=== PATIENT | male | born 1965 | race Caucasian/White ===

== ENCOUNTER 2016-10-06 08:32 | Emergency (ER) | payer OTHER ==
[2016-10-06] MEDS ORDERED: NS 0.9% 1000 ML* 1,000 ML IV ONE (08:50)
[2016-10-06 09:33] LABS: Hematocrit 46 % (42-52); Hemoglobin 15.6 g/dl (14.0-18.0); Mean Corpuscular HGB Conc 34 g/dl (31-36); Mean Corpuscular Hemoglobin 31 pg (27-31); Mean Corpuscular Volume 90 fL (80-94); Mean Platelet Volume 9 um3 (7.4-10.4); Red Blood Count 5.07 10^6/ul (4.0-5.4); Red Cell Distribution Width 14 % (10.5-15); White Blood Count 8.9 10^3/ul (3.5-10.8)
[2016-10-06 09:48] LABS: Albumin 3.8 g/dL (3.2-5.2); BUN/Creatinine Ratio 18.5 (8-20); C Reactive Protein 7.18 mg/L (< 5.00); Calcium 8.9 mg/dL (8.6-10.3); EGFR African American 128.2 (>60); EGFR Non-African American 99.7 (>60); Globulin 2.9 g/dL (2-4); Potassium 3.7 mmol/L (3.5-5.0); Total Bilirubin 0.5 mg/dL (0.2-1.0); Total Protein 6.7 g/dL (6.4-8.9)
[2016-10-06 10:18] LABS: Urine Bilirubin Negative (Negative); Urine Glucose Negative (Negative); Urine Nitrite Negative (Negative)
[2016-10-06] MEDS ORDERED: Iohexol 300* (CONTRAST) 10 ML SDV IV ONE (11:09)
[2016-10-06] MEDS ORDERED: HYDROmorphone INJ* 1 MG/ML CARPUJECT SYRINGE ONE (12:15)
[2016-10-06] MEDS ORDERED: HYDROmorphone INJ* 1 MG/ML CARPUJECT SYRINGE IV SLOW PU ONE (12:19)
--- NOTE | 2016-10-06 12:33 | RAD ---
INDICATION: Left lower quadrant abdominal pain. History of colonoscopy on September 14, 2016. COMPARISON: There are no prior studies available for comparison. TECHNIQUE: A CT scan of the abdomen and pelvis was performed with intravenous and oral contrast following intravenous injection of 150 ml of Omnipaque 300 nonionic contrast. Contiguous axial sections were obtained from the lung bases through the symphysis pubis. Images were reconstructed in the coronal and sagittal planes. FINDINGS: The lung bases are clear. No pleural effusion is present. The liver is moderately enlarged and decreased in attenuation consistent with fatty infiltration. No significant focal abnormality is seen. No calcified gallstones are noted. The spleen is normal in size. The pancreas appears to be within normal limits. The kidneys and adrenal glands are normal in size. No hydronephrosis is seen. There appear to be small bilateral renal cysts measuring up to 1.5 cm in size. The aorta is normal in caliber and demonstrates homogeneous contrast opacification. No significant enlarged retroperitoneal lymph nodes are seen. The stomach, small and large bowel appear nondistended. The appendix is within normal limits. There is mild to moderate descending and sigmoid diverticulosis. There is no evidence for diverticulitis or colitis. There is a small periumbilical hernia containing fat. No free intraperitoneal air or fluid is seen. No significant focal osseous abnormality is seen. IMPRESSION: 1. NO EVIDENCE FOR ACUTE FINDING OR CAUSE FOR THE PATIENT'S ABDOMINAL PAIN IS SEEN. 2. HEPATOMEGALY AND HEPATIC STEATOSIS.
--- NOTE | 2016-10-15 09:48 | ED ---
Dawit Izaguirre Adam, scribed for Stanley Gray MD on 10/06/16 at 0853 . Abdominal Pain/Male - HPI Summary HPI Summary: Pt is a 51 year old male presenting with LLQ abdominal pain. The pt had a colonoscopy on 09/14 with 2 polyps removed and he has had the LLQ pain intermittently since then. The pain is described as a dull ache. It tends to be alleviated by having a BM. He came to the ED because the pain has grown more severe in the past day. Pt denies CP, SOB, blood in stool. PMHx of HTN. Pt quit smoking 2 years ago. FMHx of heart disease (father at 44). - History of Current Complaint Chief Complaint: EDAbdPain Stated Complaint: ABD PAIN/TONKSDWFQEH-12-11-16 Time Seen by Provider: 10/06/16 08:49 Hx Obtained From: Patient Onset/Duration: Gradual Onset, Lasting Weeks, Still Present Timing: Intermittent Severity Initially: Mild Severity Currently: Moderate Pain Intensity: 10 Pain Scale Used: 0-10 Numeric Location: Discrete At: LLQ Radiates: No Aggravating Factor(s): Nothing Alleviating Factor(s): Nothing - Allergies/Home Medications Allergies/Adverse Reactions: Allergies Allergy/AdvReac Type Severity Reaction Status Date / Time Ampicillin Allergy Rash Verified 10/06/16 08:39 Penicillins [PCN] Allergy Rash Verified 10/06/16 08:39 Home Medications: Home Medications Aspirin Low Dose CHEW TAB* [Aspirin Low Dose TAB*] 81 mg PO BEDTIME 10/06/16 [ History Confirmed 10/06/16] Hydrochlorothiazide TAB* [Hydrodiuril TAB*] 25 mg PO DAILY 10/06/16 [History Confirmed 10/06/16] Metoprolol Tartrate TAB* [Lopressor TAB*] 50 mg PO BID 10/06/16 [History Confirmed 10/06/16] PMH/Surg Hx/FS Hx/Imm Hx Cardiovascular History: Reports: Hx Hypertension Infectious Disease History: No Infectious Disease History: Denies: Traveled Outside the [place] in Last 30 Days - Family History Known Family History: Positive: Cardiac Disease - Social History Occupation: Unemployed Lives: With Family - Hx Tobacco Use: Yes - Quit 10/01/2014 Smoking Status (MU): Former Smoker Review of Systems Constitutional: Negative Negative: Fever Positive: Abdominal Pain All Other Systems Reviewed And Are Negative: Yes Physical Exam - Summary Physical Exam Summary: GENERAL: Awake, alert, oriented, no acute distress, very pleasant HEENT: Head is normocephalic, atraumatic, anicteric sclera, pink conjunctiva, mucous membranes moist, no erythema, no discharge, no lesions, neck is supple, trachea is midline, no JVD CARDIAC: Regular rate and rhythm, S1, S2, no rub, no murmur, no gallop, 2+ radial and pedal pulses bilaterally RESPIRATORY: Clear to auscultation bilaterally with no rales, rhonchi, or wheezes, non-tender ABDOMEN: Moderate tenderness in the LLQ. No guarding, no rebound. Bowel sounds positive, no bruit, soft, no tenderness over McBurneys point, negative Marino s sign, negative Psoas sign, 2+ femoral pulses, no CVA tenderness EXTREMITIES: No edema, warm, dry, moving all extremities in a grossly normal manner NEUROLOGICAL: Mood is appropriate, moving all extremities in a grossly normal manner Triage Information Reviewed: Yes Vital Signs On Initial Exam: Initial Vitals Temp Pulse Resp BP Pulse Ox 97.0 F 54 16 154/86 98 10/06/16 08:35 10/06/16 08:35 10/06/16 08:35 10/06/16 08:35 10/06/16 08:35 Vital Signs Reviewed: Yes Diagnostics - Vital Signs Vital Signs Temp Pulse Resp BP Pulse Ox 10/06/16 08:35 97.0 F 54 16 154/86 98 - Laboratory Result Diagrams: 10/06/16 09:15 10/06/16 09:15 Lab Statement: Any lab studies that have been ordered have been reviewed, and results considered in the medical decision making process. - CT A/P CT Interpretation Completed By: Radiologist - IMPRESSION: 1. NO EVIDENCE FOR ACUTE FINDING OR CAUSE FOR THE PATIENT'S ABDOMINAL PAIN IS SEEN. 2. HEPATOMEGALY AND HEPATIC STEATOSIS. Abdominal Pain Fem Course/Dx - Diagnoses Provider Diagnoses: Abdominal pain Discharge - Discharge Plan Condition: Stable Disposition: HOME Patient Education Materials: Abdominal Pain (ED) Referrals: Eran Rodriguez MD [Medical Doctor] - Additional Instructions: Follow up with Dr. Rodriguez in 2 days. The documentation as recorded by the Dawit lau Adam accurately reflects the service I personally performed and the decisions made by me, Stanley Gray MD.
== END 2016-10-06 13:27 | disposition home or self-care (01) ==
LOC: ED 08:32
DX: R10.32 Left lower quadrant pain (principal)
CPT/HCPCS: 36415; 74177; 80053; 81003; 83605; 83690; 85025; 86140; 96374; 96376; 99284; J1170; Q9967

== ENCOUNTER → 2018-06-10 07:55 | Day surgery (SDC) | payer OTHER ==
[~2018-06-10 07:55] MED LIST: Acetaminophen TAB* 325 MG PO PRN; Diazepam TAB(*) 5 MG ONE; Heparin 2 UNITS/ML IVPREMIX* 1,000 ML IV ONE; Heparin 2 UNITS/ML IVPREMIX* 3,000 ML IV ONE; Heparin(*) 1000 UNIT/ML 10 ML VIAL CATH LAB IV ONE; Iohexol 350 (CONTRAST) 200 ML MDV IV ONE; Lidocaine 1% INJ* 10 MG/ML 30 ML SDV ONE; Midazolam* 1 MG/ML 10 ML VIAL (10 MG) ONE; NS 0.9% 1000 ML* 1,000 ML IV SCH; VERAPAMIL 2.5 MG/ML 2 ML VIAL ** 5 mg/2 ml ONE; diPHENhydraMINE PO* 25 MG ONE; fentaNYL* 50 MCG/ML 2 ML VIAL (100 MCG VIAL) ONE; nitroGLYCERIN DRIP* 25,000 MCG/250 ML BTL ONE
[2018-06-10 12:14] VITALS: BP 150/70
--- NOTE | 2018-06-11 22:35 | CATH ---
CARDIAC CATHETERIZATION: DATE OF PROCEDURE: 06/10/18 - [facility] CATH PROCEDURE: Cardiac catheterization including right heart catheterization, left heart catheterization, left ventriculogram coronary angiography. INDICATION: Severe dyspnea, abnormal stress test. The patient is a 52-year-old gentleman, with known obesity and severe shortness of breath who recently underwent cardiac evaluation. He underwent an exercise nuclear stress test at which time he exercised for only 3 minutes and had profound dyspnea. Early on his exercise tolerance he had no EKG changes and no arrhythmias. His nuclear images showed an evidence of an apical infarction. The patient had an echocardiogram which showed normal LV size and systolic function, but unable to estimate PA systolic pressures. Because of the continued symptoms and questions of pulmonary hypertension, cardiac catheterization was recommended. DESCRIPTION OF PROCEDURE: The patient was brought to the cardiac catheterization lab in a fasting state. Informed consent had been obtained prior to the procedure. All labs were reviewed. The patient's had previously placed IV in his right antecubital vein. This was switched off for a 5-Beninese sheath introducer thorough which a [place] catheter was advanced to the pulmonary artery. Multiple hemodynamic and oxygen saturation readings were taken. Cardiac output was determined by Beena and by thermodilution. The radial artery was undermined modified Seldinger technique and a guidewire was placed over the guidewire, a 6-Beninese hydrophilic sheath was placed into the radial artery. The patient underwent coronary angiography and left ventriculogram using a 6-Beninese pigtail catheter, a 6-Beninese JL4 catheter and a 6-Beninese AR1 catheter. At the end of the procedure all sheaths and catheters were removed. The patient tolerated the procedure well with no complications. A total of 125 cc of Omnipaque dye was used and a total of 13 minutes of fluoro time was used. FINDINGS: HEMODYNAMICS: Right atrial pressure with a mean of 9, right ventricular pressure of 32/10 with an end-diastolic pressure of 12. Pulmonary capillary wedge pressure of 21. Pulmonary artery pressure 35/17 with a mean of 25. Central aortic blood pressure 126/78 with a mean of 100. Left ventricular pressure 130/2 with an end diastolic pressure of 17. Right atrial saturation is 66%, pulmonary artery saturation 71%, central aortic saturation 97%. Cardiac output by Beena is 6.6 liters per minute. Cardiac output by thermodilution 9.4 liters per minute. No evidence of shunting. CORONARY ARTERIES: 1. Left main artery: The left main artery was short. It bifurcated into the LAD and circumflex. There was no evidence of stenosis. 2. Left anterior descending artery: The LAD was normal in size. It gave off 2 diagonal vessels. There was no evidence of stenosis. 3. Left circumflex artery: The left circumflex artery was normal in size. It gave off 1 obtuse marginal branch. There was no evidence of stenosis. 4. Right coronary artery: The RCA was a large dominant vessel given off the PDA. There was no evidence of stenosis. LEFT VENTRICULOGRAM: During the left ventriculogram the pigtail catheter migrated into the ascending aorta plus a full ventriculogram was not obtained. IMPRESSION: 1. Normal right heart catheterization with normal pulmonary artery pressures and normal cardiac output. 2. No evidence of coronary artery disease. 3. Successful radial artery catheterization. RECOMMENDATION: The patient will continue on medical therapy. The patient may benefit from evaluation for sleep apnea. [id number]/CPS #: [id number] LUPIS
== END | disposition home or self-care (01) ==
LOC: CHICATH 07:55
PROVIDERS: ATTEND Specialist
DX: R94.39 Abnormal result of other cardiovascular function study (principal); R06.02 Shortness of breath; I51.7 Cardiomegaly; E78.5 Hyperlipidemia, unspecified; I11.9 Hypertensive heart disease without heart failure; E11.9 Type 2 diabetes mellitus without complications; Z88.0 Allergy status to penicillin; Z87.891 Personal history of nicotine dependence; R94.31 Abnormal electrocardiogram [ECG] [EKG]; R06.00 Dyspnea, unspecified
CPT/HCPCS: 82803; 93460; 99156; 99157; A9270-GY; C1887; J1644; J2250; J3010

== ENCOUNTER 2019-05-09 07:22 | Emergency (ER) | payer OTHER ==
[2019-05-09] MEDS ORDERED: Ketorolac INJ* 30 MG/ML 1 ML VIAL IV PUSH ONE (07:54)
[2019-05-09] MEDS ORDERED: Diazepam TAB(*) 5 MG PO ONE ×2 (07:54→07:55)
[2019-05-09 08:13] LABS: ABS Basophils 0.1 10^3/ul (0-0.2); ABS Lymphocytes 1.3 10^3/ul (1.0-4.8); ABS Monocytes 0.5 10^3/ul (0-0.8); ABS Neutrophils 7.4 10^3/ul (1.5-7.7); Eosinophil % 0.3 %; Hematocrit 45 % (42-52); Hemoglobin 15.8 g/dL (14.0-18.0); Lymphocyte % 14.2 %; Mean Corpuscular HGB Conc 35 g/dL (31-36); Mean Corpuscular Hemoglobin 31 pg (27-31); Mean Corpuscular Volume 87 fL (80-94); Mean Platelet Volume 8.8 fL (7.4-10.4); Nucleated Red Blood Cells % 0.1; Platelet Count 261 10^3/uL (150-450); Red Blood Count 5.15 10^6 /uL (4.18-5.48); Red Cell Distribution Width 14 % (10-15); White Blood Count 9.2 10^3/uL (3.5-10.8)
[2019-05-09] MEDS ORDERED: Iohexol 300* (CONTRAST) 10 ML SDV IV ONE (08:18)
[2019-05-09 08:30] LABS: Albumin 4.1 g/dL (3.2-5.2); Albumin/Globulin Ratio 1.4 (1-3); BUN/Creatinine Ratio 19.7 (8-20); C Reactive Protein 9.62 mg/L (<8.01); Calcium 9.2 mg/dL (8.6-10.3); EGFR African American 139.4 (>60); EGFR Non-African American 115.2 (>60); Globulin 2.9 g/dL (2-4); Potassium 3.1 mmol/L (3.5-5.0); Total Bilirubin 0.6 mg/dL (0.2-1.0)
[2019-05-09 08:42] LABS: Urine Appearance Cloudy; Urine Bilirubin Negative (Negative); Urine Blood Negative (Negative); Urine Color Yellow; Urine Glucose Negative (Negative); Urine Ketones 1+ (Negative); Urine Nitrite Negative (Negative); Urine Protein Negative (Negative); Urine Specific Gravity 1.011 (1.010-1.030); Urine Urobilinogen Negative (Negative)
[2019-05-09] MEDS ORDERED: oxyCODONE/Acetamin 5/325 MG* TAB PO ONE (09:31)
[2019-05-09] MEDS ORDERED: Potassium Chlor TAB* 20 MEQ TAB.ER PO ONE (09:53)
--- NOTE | 2019-05-09 10:43 | ED ---
Back Pain - HPI Summary HPI Summary: Patient is a 53-year-old male who presents emergency department for low back pain times one week. Swimming in the pool because ago when he believes he injured his low back. Patient states pain has been increasing and is located to his left back and radiates into his abdomen. Patient denies fever, chills, cough, shortness of breath, chest pain, abdominal pain, vomiting, diarrhea. He does no urinary urgency. Symptoms are [id number] in severity. Movement makes symptoms worse. Nothing makes symptoms better. - History of Current Complaint Chief Complaint: EDBackInjuryPain Stated Complaint: BACK PAIN PER EMS Time Seen by Provider: 05/09/19 07:35 Hx Obtained From: Patient Pain Intensity: 10 - Allergies/Home Medications Allergies/Adverse Reactions: Allergies Allergy/AdvReac Type Severity Reaction Status Date / Time ampicillin Allergy Intermediate Rash Verified 05/09/19 11:17 Penicillins Allergy Intermediate Rash Verified 05/09/19 11:17 Home Medications: Home Medications Umeclidin/Vilant 62.5 MDI(NF) [ANORO 62.5/25 Ellipta DEVICE (NF)] 1 puff INH DAILY 05/09/19 [History Confirmed 05/09/19] PMH/Surg Hx/FS Hx/Imm Hx Previously Healthy: Yes Endocrine/Hematology History: Denies: Hx Diabetes Cardiovascular History: Reports: Hx Hypercholesterolemia, Hx Hypertension History: Denies: Hx Renal Disease Infectious Disease History: No Infectious Disease History: Denies: Traveled Outside the [place] in Last 30 Days - Family History Known Family History: Positive: Cardiac Disease, Non-Contributory - Social History Occupation: Unemployed Lives: With Family Alcohol Use: Daily Alcohol Amount: 1-3 beers daily Substance Use Type: Reports: Marijuana Hx Tobacco Use: Yes - Quit 10/01/2014 Smoking Status (MU): Former Smoker Review of Systems Constitutional: Negative Negative: Fever, Chills Cardiovascular: Negative Negative: Palpitations, Chest Pain Respiratory: Negative Negative: Shortness Of Breath, Cough Positive: Abdominal Pain, Nausea. Negative: Vomiting, Diarrhea Positive: urgency. Negative: dysuria, hematuria Positive: Other - back pain, left low Skin: Negative Negative: Rash Neurological: Negative Negative: Weakness, Paresthesia, Numbness All Other Systems Reviewed And Are Negative: Yes Physical Exam Triage Information Reviewed: Yes Vital Signs On Initial Exam: Initial Vitals Temp Pulse Resp BP Pulse Ox 97.8 F 57 18 136/75 99 05/09/19 07:24 05/09/19 07:24 05/09/19 07:24 05/09/19 07:24 05/09/19 07:24 Vital Signs Reviewed: Yes Appearance: Positive: Pain Distress - Pt. sitting up in bed in NAD. Appears uncomfortable and has a lot of pain with movement. Skin: Positive: Warm, Dry Head/Face: Positive: Normal Head/Face Inspection Eyes: Positive: Normal, EOMI Neck: Positive: Supple Respiratory/Lung Sounds: Positive: Clear to Auscultation, Breath Sounds Present Cardiovascular: Positive: Normal, RRR Abdomen Description: Positive: Nontender, Soft Musculoskeletal: Positive: Normal, Strength/ROM Intact, Other - 5 out of 5 strength in bilateral lower extremities. Mild left CVA tenderness and left side joint pain. Neurological: Positive: Normal, CN Intact II-III Psychiatric: Positive: Affect/Mood Appropriate Diagnostics - Vital Signs Vital Signs Temp Pulse Resp BP Pulse Ox 05/09/19 09:49 18 05/09/19 08:04 16 05/09/19 08:00 128/77 05/09/19 07:30 56 136/75 99 05/09/19 07:29 58 98 05/09/19 07:24 97.8 F 57 18 136/75 99 - Laboratory Lab Results: Lab Results 05/09/19 05/09/19 05/09/19 Range/Units 08:03 08:03 08:15 WBC 9.2 (3.5-10.8) 10^3/uL RBC 5.15 (4.18-5.48) 10^6 /uL Hgb 15.8 (14.0-18.0) g/dL Hct 45 (42-52) % MCV 87 (80-94) fL MCH 31 (27-31) pg MCHC 35 (31-36) g/dL RDW 14 (10-15) % Plt Count 261 (150-450) 10^3/uL MPV 8.8 (7.4-10.4) fL Neut % (Auto) 80.0 % Lymph % (Auto) 14.2 % [place] % (Auto) 4.9 % Eos % (Auto) 0.3 % Baso % (Auto) 0.6 % Absolute Neuts (auto) 7.4 (1.5-7.7) 10^3/ul Absolute Lymphs (auto) 1.3 (1.0-4.8) 10^3/ul Absolute Monos (auto) 0.5 (0-0.8) 10^3/ul Absolute Eos (auto) 0.0 (0-0.6) 10^3/ul Absolute Basos (auto) 0.1 (0-0.2) 10^3/ul Absolute Nucleated RBC 0.0 10^3/ul Nucleated RBC % 0.1 Sodium 136 (135-145) mmol/L Potassium 3.1 L (3.5-5.0) mmol/L Chloride 103 (101-111) mmol/L Carbon Dioxide 22 (22-32) mmol/L Anion Gap 11 (2-11) mmol/L BUN 14 (6-24) mg/dL Creatinine 0.71 (0.67-1.17) mg/dL Est GFR ( Amer) 139.4 (>60) Est GFR (Non-Af Amer) 115.2 (>60) BUN/Creatinine Ratio 19.7 (8-20) Glucose 159 H (70-100) mg/dL Calcium 9.2 (8.6-10.3) mg/dL Total Bilirubin 0.60 (0.2-1.0) mg/dL AST 15 (13-39) U/L ALT 22 (7-52) U/L Alkaline Phosphatase 51 (34-104) U/L C-Reactive Protein 9.62 H (<8.01) mg/L Total Protein 7.0 (6.4-8.9) g/dL Albumin 4.1 (3.2-5.2) g/dL Globulin 2.9 (2-4) g/dL Albumin/Globulin Ratio 1.4 (1-3) Urine Color Yellow Urine Appearance Cloudy Urine pH 7.0 (5-9) Ur Specific [place] 1.011 (1.010-1.030) Urine Protein Negative (Negative) Urine Ketones 1+ A (Negative) Urine Blood Negative (Negative) Urine Nitrate Negative (Negative) Urine Bilirubin Negative (Negative) Urine Urobilinogen Negative (Negative) Ur Leukocyte Esterase Negative (Negative) Urine Glucose Negative (Negative) Result Diagrams: 05/09/19 08:03 05/09/19 08:03 Lab Statement: Any lab studies that have been ordered have been reviewed, and results considered in the medical decision making process. Back Pain Course/Dx - Course Course Of Treatment: Patient left flank pain race and abdomen. He is afebrile stable vital signs. Patient does have urinary hesitancy. We'll rule out urolithiasis. Labs unremarkable other than trace ketones in urine and mildly elevated glucose. CT per radiology: IMPRESSION: #. No acute abdominal pelvic pathologic process evident. #. Hepatomegaly and hepatosteatosis. #. Normal appendix documented. Mild colonic diverticulosis without findings of acute. diverticulitis. #. Negative for nephrolithiasis or hydronephrosis. Patient initially given Toradol and Valium for his pain with little relief. He was given a dose Percocet with improvement of pain. Patient able to ambulate with pain. He has no neurological deficits or evidence of cauda equina syndrome. We 'll discharge with a few days of pain medication and prednisone. GIN FEEDER reviewed and no red flags noted. Patient will follow-up with PCP on Sunday and return to the ER symptoms change or worsen. - Diagnoses Differential Diagnosis/HQI/PQRI: Positive: Arthritis, Fracture, Herniated Disc, Renal Colic, Strain, Sprain Provider Diagnoses: Lumbar strain Discharge - Sign-Out/Discharge Documenting (check all that apply): Patient Departure Patient Received Moderate/Deep Sedation with Procedure: No - Discharge Plan Condition: Improved Disposition: HOME Prescriptions: HYDROcodone/ACETAMIN 5-325 MG* [[place] 5-325 TAB*] 1 tab PO Q6H PRN #12 tab MDD 4 PRN Reason: Pain - Moderate predniSONE [Prednisone 20 MG TAB] 40 mg PO ONCE #10 tablet Patient Education Materials: Low Back Strain (ED) Referrals: Celestine MORE,Clif[place] New [Primary Care Provider] - Additional Instructions: Follow up with your PCP within 2-3 days Take medication as directed Apply warm compresses Gentle stretching Return to ER if symptoms change or worsen - Billing Disposition and Condition Condition: IMPROVED Disposition: Home
[2019-05-09 11:37] VITALS: BP 140/80
== END 2019-05-09 11:36 | disposition home or self-care (01) ==
LOC: ED 07:22
DX: S39.012A Strain of muscle, fascia and tendon of lower back, initial encounter (principal); X58.XXXA Exposure to other specified factors, initial encounter; Y92.9 Unspecified place or not applicable; Z88.0 Allergy status to penicillin; Z79.899 Other long term (current) drug therapy; Z87.891 Personal history of nicotine dependence; R16.0 Hepatomegaly, not elsewhere classified; K76.89 Other specified diseases of liver; K57.30 Diverticulosis of large intestine without perforation or abscess without bleeding
CPT/HCPCS: 36415; 74177; 80053; 81003; 85025; 86140; 96374; 99283; A9270-GY; J1885; Q9967

== ENCOUNTER 2019-12-14 23:17 | Observation (INO) | payer OTHER ==
[2019-12-15 00:36] LABS: ABS Lymphocytes 1.1 10^3/ul (1.0-4.8); ABS Monocytes 0.6 10^3/ul (0-0.8); ABS Neutrophils 10.2 10^3/ul (1.5-7.7); Eosinophil % 0.2 %; Hematocrit 44 % (42-52); Hemoglobin 15.2 g/dL (14.0-18.0); Lymphocyte % 9.1 %; Mean Corpuscular HGB Conc 35 g/dL (31-36); Mean Corpuscular Hemoglobin 31 pg (27-31); Mean Corpuscular Volume 89 fL (80-94); Mean Platelet Volume 9.3 fL (7.4-10.4); Platelet Count 290 10^3/uL (150-450); Red Blood Count 4.94 10^6 /uL (4.18-5.48); Red Cell Distribution Width 14 % (10-15); White Blood Count 11.9 10^3/uL (3.5-10.8)
[2019-12-15 00:55] LABS: ALT 12 U/L (7-52); AST 11 U/L (13-39); Albumin 4.1 g/dL (3.2-5.2); Albumin/Globulin Ratio 1.3 (1-3); Alkaline Phosphatase 59 U/L (34-104); Anion Gap 8 mmol/L (2-11); BUN/Creatinine Ratio 10.6 (8-20); Blood Urea Nitrogen 9 mg/dL (6-24); CO2 Carbon Dioxide 26 mmol/L (22-32); Calcium 9.8 mg/dL (8.6-10.3); Chloride 103 mmol/L (101-111); EGFR African American 112.8 (>60); EGFR Non-African American 93.2 (>60); Globulin 3.1 g/dL (2-4); Glucose 129 mg/dL (70-100); Potassium 3.9 mmol/L (3.5-5.0); Sodium 137 mmol/L (135-145); Total Protein 7.2 g/dL (6.4-8.9)
[2019-12-15] MEDS ORDERED: Ondansetron INJ* 2 MG/ML VIAL IV ONE ×2 (02:06→04:18)
[2019-12-15] MEDS ORDERED: Ketorolac INJ* 30 MG/ML 1 ML VIAL IV PUSH ONE (02:06)
[2019-12-15 02:37] LABS: Urine Appearance Clear; Urine Bilirubin Negative (Negative); Urine Blood Negative (Negative); Urine Color Yellow; Urine Glucose Negative (Negative); Urine Ketones 2+ (Negative); Urine Nitrite Negative (Negative); Urine Protein Negative (Negative); Urine Specific Gravity 1.025 (1.010-1.030); Urine Urobilinogen Negative (Negative)
[2019-12-15] MEDS ORDERED: Iohexol 300* (CONTRAST) 10 ML SDV IV ONE (02:52)
--- NOTE | 2019-12-15 03:10 | ED ---
Abdominal Pain/Male - HPI Summary HPI Summary: Patient is a 54 y/o M presenting to [facility] with chief complaint of abdominal pain. He states that this current pain has been present for the 2-3 days. He notes a similar episode of pain that occurred two weeks ago, but states that this resolved spontaneously. Pain is characterized as a squeezing sensation. He notes nausea, some diarrhea, and decreased appetite. Fever is denied. He reports PMHx of diabetes, HTN and COPD. Patient states that he was diagnosed with type 2 diabetes a year ago when he weighed 411 lbs. He reports that he refused to take diabetes medications and went on a high keto diet. Patient claims to have lost 100lbs. He also notes that he has stopped taking his HTN and COPD medications. Patient denies past abdominal surgeries, he still has his appendix and gallbladder. He is a former smoker of 5-6 years, denies alcohol consumption, but reports daily marijuana usage. He claims FMHx of [place] in father at age 43. Sister is reported to have Parkinson's disease. Home medications and allergies are reviewed. - History of Current Complaint Chief Complaint: EDAbdPain Stated Complaint: ABD PAIN PER PT Time Seen by Provider: 12/15/19 01:36 Hx Obtained From: Patient Onset/Duration: Lasting Days Timing: Lasting Days Severity Currently: Severe Pain Intensity: 9 Pain Scale Used: 0-10 Numeric Character: Other: - squeezing Associated Signs And Symptoms: Positive: Decreased Appetite, Nausea, Diarrhea. Negative: Fever - Allergies/Home Medications Allergies/Adverse Reactions: Allergies Allergy/AdvReac Type Severity Reaction Status Date / Time ampicillin Allergy Intermediate Rash Verified 12/14/19 23:23 Penicillins Allergy Intermediate Rash Verified 12/14/19 23:23 Home Medications: Home Medications NK [No Home Medications Reported] 12/15/19 [History Confirmed 12/15/19] PMH/Surg Hx/FS Hx/Imm Hx Endocrine/Hematology History: Reports: Hx Diabetes Cardiovascular History: Reports: Hx Hypercholesterolemia, Hx Hypertension Respiratory History: Reports: Hx Chronic Obstructive Pulmonary Disease (COPD) History: Denies: Hx Renal Disease Infectious Disease History: No Infectious Disease History: Denies: Traveled Outside the [place] in Last 30 Days - Family History Known Family History: Positive: Cardiac Disease - Social History Alcohol Use: None Substance Use Type: Reports: Marijuana Hx Tobacco Use: Yes - Quit 10/01/2014 Smoking Status (MU): Former Smoker - Additional Comments History Additional Comments: PMHx of HTN, COPD, diabetes Review of Systems - ROS Summary Review of Systems Summary: Home Medications Medication Instructions Recorded Confirmed Type NK [No Home Medications Reported] 12/15/19 12/15/19 History Negative: Fever Positive: Abdominal Pain, Diarrhea, Nausea, Other - Decreased appetite All Other Systems Reviewed And Are Negative: Yes Physical Exam - Summary Physical Exam Summary: General: Well-developed, Morbidly obese male. Moderate discomfort HEENT: Normocephalic, Atraumatic. Eyes: Conjuctiva normal, PERRL. Oropharynx: Clear, mucous membranes moist, (-) exudates. Neck: Soft, FROM, (-) lymphadenopathy, (-) thyromegaly, (-) JVD. Cardiovascular: Normal sinus rhythm, (-) murmur. Lungs: Clear to auscultation bilaterally (-) wheezes, (-) rales, (-) rhonchi. Abdomen: Soft, moderate tenderness to RLQ and RUQ with rebound and guarding to the RLQ; non-distended, (-) organomegaly, normal bowel sounds. Back: (-) CVA tenderness Extremities: No edema. Skin: Warm, dry, (-) rash. Neuro: Alert and oriented x3, moves all extremities equally. No ataxia. No gait disturbance. No sensory deficit. Normal strength, normal sensation. Psychiatric: Mood normal, affect normal. Triage Information Reviewed: Yes Vital Signs On Initial Exam: Initial Vitals Temp Pulse Resp BP Pulse Ox 98.0 F 61 18 144/98 98 12/14/19 23:23 12/14/19 23:23 12/14/19 23:23 12/14/19 23:23 12/14/19 23:23 Vital Signs Reviewed: Yes Procedures - Sedation Patient Received Moderate/Deep Sedation with Procedure: No Diagnostics - Vital Signs Vital Signs Temp Pulse Resp BP Pulse Ox 12/15/19 03:08 57 93 12/15/19 03:06 58 143/89 93 12/15/19 01:19 50 153/93 100 12/15/19 01:00 58 100 12/15/19 00:46 48 165/95 97 12/14/19 23:23 98.0 F 61 18 144/98 98 - Laboratory Lab Results: Lab Results 03/12/15/19 12/15/19 Range/Units 00:28 00:28 00:28 WBC 11.9 H (3.5-10.8) 10^3/uL RBC 4.94 (4.18-5.48) 10^6 /uL Hgb 15.2 (14.0-18.0) g/dL Hct 44 (42-52) % MCV 89 (80-94) fL MCH 31 (27-31) pg MCHC 35 (31-36) g/dL RDW 14 (10-15) % Plt Count 290 (150-450) 10^3/uL MPV 9.3 (7.4-10.4) fL Neut % (Auto) 85.4 % Lymph % (Auto) 9.1 % [place] % (Auto) 5.0 % Eos % (Auto) 0.2 % Baso % (Auto) 0.3 % Absolute Neuts (auto) 10.2 H (1.5-7.7) 10^3/ul Absolute Lymphs (auto) 1.1 (1.0-4.8) 10^3/ul Absolute Monos (auto) 0.6 (0-0.8) 10^3/ul Absolute Eos (auto) 0.0 (0-0.6) 10^3/ul Absolute Basos (auto) 0.0 (0-0.2) 10^3/ul Absolute Nucleated RBC 0.0 10^3/ul Nucleated RBC % 0.0 Sodium 137 (135-145) mmol/L Potassium 3.9 (3.5-5.0) mmol/L Chloride 103 (101-111) mmol/L Carbon Dioxide 26 (22-32) mmol/L Anion Gap 8 (2-11) mmol/L BUN 9 (6-24) mg/dL Creatinine 0.85 (0.67-1.17) mg/dL Est GFR ( Amer) 112.8 (>60) Est GFR (Non-Af Amer) 93.2 (>60) BUN/Creatinine Ratio 10.6 (8-20) Glucose 129 H (70-100) mg/dL Lactic Acid 0.8 (0.5-2.0) mmol/L Calcium 9.8 (8.6-10.3) mg/dL Total Bilirubin 0.60 (0.2-1.0) mg/dL AST 11 L (13-39) U/L ALT 12 (7-52) U/L Alkaline Phosphatase 59 (34-104) U/L C-Reactive Protein 72.50 H (<8.01) mg/L Total Protein 7.2 (6.4-8.9) g/dL Albumin 4.1 (3.2-5.2) g/dL Globulin 3.1 (2-4) g/dL Albumin/Globulin Ratio 1.3 (1-3) Lipase < 10 L (11.0-82.0) U/L Urine Color Urine Appearance Urine pH (5-9) Ur Specific [place] (1.010-1.030) Urine Protein (Negative) Urine Ketones (Negative) Urine Blood (Negative) Urine Nitrate (Negative) Urine Bilirubin (Negative) Urine Urobilinogen (Negative) Ur Leukocyte Esterase (Negative) Urine Glucose (Negative) 12/15/19 Range/Units 02:25 WBC (3.5-10.8) 10^3/uL RBC (4.18-5.48) 10^6 /uL Hgb (14.0-18.0) g/dL Hct (42-52) % MCV (80-94) fL MCH (27-31) pg MCHC (31-36) g/dL RDW (10-15) % Plt Count (150-450) 10^3/uL MPV (7.4-10.4) fL Neut % (Auto) % Lymph % (Auto) % [place] % (Auto) % Eos % (Auto) % Baso % (Auto) % Absolute Neuts (auto) (1.5-7.7) 10^3/ul Absolute Lymphs (auto) (1.0-4.8) 10^3/ul Absolute Monos (auto) (0-0.8) 10^3/ul Absolute Eos (auto) (0-0.6) 10^3/ul Absolute Basos (auto) (0-0.2) 10^3/ul Absolute Nucleated RBC 10^3/ul Nucleated RBC % Sodium (135-145) mmol/L Potassium (3.5-5.0) mmol/L Chloride (101-111) mmol/L Carbon Dioxide (22-32) mmol/L Anion Gap (2-11) mmol/L BUN (6-24) mg/dL Creatinine (0.67-1.17) mg/dL Est GFR ( Amer) (>60) Est GFR (Non-Af Amer) (>60) BUN/Creatinine Ratio (8-20) Glucose (70-100) mg/dL Lactic Acid (0.5-2.0) mmol/L Calcium (8.6-10.3) mg/dL Total Bilirubin (0.2-1.0) mg/dL AST (13-39) U/L ALT (7-52) U/L Alkaline Phosphatase (34-104) U/L C-Reactive Protein (<8.01) mg/L Total Protein (6.4-8.9) g/dL Albumin (3.2-5.2) g/dL Globulin (2-4) g/dL Albumin/Globulin Ratio (1-3) Lipase (11.0-82.0) U/L Urine Color Yellow Urine Appearance Clear Urine pH 5.0 (5-9) Ur Specific [place] 1.025 (1.010-1.030) Urine Protein Negative (Negative) Urine Ketones 2+ A (Negative) Urine Blood Negative (Negative) Urine Nitrate Negative (Negative) Urine Bilirubin Negative (Negative) Urine Urobilinogen Negative (Negative) Ur Leukocyte Esterase Negative (Negative) Urine Glucose Negative (Negative) Result Diagrams: 12/15/19 00:28 12/15/19 00:28 Lab Statement: Any lab studies that have been ordered have been reviewed, and results considered in the medical decision making process. - CT CT ABD/PEL CT Interpretation Completed By: Radiologist Summary of CT Findings: IMPRESSION: Acute appendicitis. No evidence of perforation. No associated abscess. No bowel. obstruction. THIS REPORT WAS REVIEWED BY ED PHYSICIAN. - EKG 9687 Cardiac Rate: Bradycardia - rate of 55 BPM EKG Rhythm: Sinus Bradycardia Summary of EKG Findings: EKG showed sinus bradycardia with rate of 55 BPM, no STEMI. ED physician reviewed and interpreted this EKG. Abdominal Pain Male Course/Dx - Course Course Of Treatment: 54-year-old male presents with abdominal pain. He states her last 2-3 days he has had some right-sided abdominal pain which has worsened. He describes the pain as sharp and severe. Constant. Never had anything like this before. No fevers or chills. No vomiting or diarrhea. Does have nausea. Nothing seems to make it better or worse. No previous surgeries on her abdomen. On physical exam he appears in moderate discomfort. He has rebound guarding and tenderness in the right lower quadrant. Workup demonstrates an elevated white count. On CT he has acute appendicitis. No perforation or abscess noted. Patient given IV fluids. Toradol and Zofran. Patient is referred to surgery for admission. He is pen allergic so clindamycin is started. patient is NPO. - Diagnoses Provider Diagnoses: Acute appendicitis - Provider Notifications Discussed Care Of Patient With: Jemima Rossi Time Discussed With Above Provider: 04:27 Instructed by Provider To: Other - Patient's case was discussed with Dr. Rossi, surgery; patient to receive clindamyacin, placed on NPO, patient accepted to surgical services. Discharge ED - Sign-Out/Discharge Documenting (check all that apply): Patient Departure - admit - Discharge Plan Condition: Stable Disposition: ADMITTED TO [facility] Referrals: Celestine MORE,Clifton New [Primary Care Provider] - - Billing Disposition and Condition Condition: STABLE Disposition: Admitted to [facility] - Attestation Statements Document Initiated by Jorgeibe: Yes Documenting Scribe: NORBERTO MCPHERSON Provider For Whom Jorgeibe is Documenting (Include Credential): CESAR SHARMA MD Scribe Attestation: INORBERTO, scribed for CESAR SHARMA MD on 12/15/19 at 0608. Scribe Documentation Reviewed: Yes Provider Attestation: The documentation as recorded by the NORBERTO lau accurately reflects the service I personally performed and the decisions made by me, CESAR SHARMA MD Status of Scribe Document: Viewed
[2019-12-15] MEDS ORDERED: Clindamycin 300 MG IVPREMIX* 300 MG/50 ML SDV IVPB ONE (04:31)
[2019-12-15] MEDS ORDERED: HYDROmorphone INJ* 0.5 MG/0.5 ML SYRINGE IV SLOW PU PRN (04:33)
[2019-12-15] MEDS ORDERED: GENTAMICIN ADULT IVPB ONE (05:00)
[2019-12-15] MEDS ORDERED: NS 0.9% IVPB ONE (05:00)
[2019-12-15] MEDS ORDERED: Lactated Ringers 1000 ML Bag* 1,000 ML IV SCH ×2 (05:00→09:00)
--- NOTE | 2019-12-15 08:10 | HP ---
H&P (Free Text) History and Physical: History and Physical General Surgery Diagnosis:Acute Appendicitis Chief Complaint: Abdominal Pain HPI:54 yo male reports a 2-3 day hx of abdominal pain, originally epigastric now focused in the right side of the abdomen. associated symptoms, nausea, no vomit, one episode of diarrhea, anorexia , no fever but sweats. He is obese, reports dropping 100lbs by adhering to a Keto diet, has stopped taking all medications for his HTN,DM, ^ Chol, COPD PMH:Obesity, DM, HTN, COPD,GERD PSH: Tonsils/Adnoids SOCIAL HX: TOB former ETOH none x 1 year DRUGS marijuana FAMILY HISTORY: brother of laryngeal Ca, Father of [place] , no family hx of bleeding or anesthesia problems ALLERGIES: Amp PCN MEDICATIONS: none ROS: Other than as per HPI a 14 point Review of Systems was negative PHYSICAL EXAM: VS: Temp Pulse Resp BP Pulse Ox 98.4 F 73 18 155/76 96 12/15/19 06:41 12/15/19 06:41 12/15/19 06:41 12/15/19 06:41 12/15/19 06:41 HEENT: NCAT, EOMI, neck supple,Trachea in midline CHEST: CTA B/L CVS: RRR ABD: Obese, + Tender Right Abdomen, Felisa umbilical, no referred pain, hypoactive BS's Diastasis Recti M/S: Moves all extremities through a full range of motion SKIN: no lesions NEURO:refuse collector grossly normal PSYCH: AxO x 3 LABS: Selected Entries 12/15/19 12/15/19 12/15/19 03:25 06:24 06:41 Temperature 98.2 F 98.7 F 98.4 F Laboratory Tests 12/15/19 12/15/19 12/15/19 00:28 00:28 00:28 WBC 11.9 H Hgb 15.2 Hct 44 Plt Count 290 Lactic Acid 0.8 C-Reactive Protein 72.50 H Urine Ketones 12/15/19 02:25 WBC Hgb Hct Plt Count Lactic Acid C-Reactive Protein Urine Ketones 2+ A RESULTS: [facility] Patient Name:WENCESLAO LUNA MR: [id number] : 1965 Lymph nodes: Unremarkable. No enlarged lymph nodes. Bladder: Unremarkable as visualized. Reproductive: Unremarkable as visualized. Bones/joints: Unremarkable. No acute fracture. Multilevel degenerative lumbar disc disease and facet disease. Soft tissues: Unremarkable. IMPRESSION: Acute appendicitis. No evidence of perforation. No associated abscess. No bowel obstruction. Dictated and Authenticated by: Ziyad Rooney MD 12/15/2019 3:09 AM Eastern Time ([place] and [place]) <Electronically signed by Ziyad Rooney MD in [place]> 12/15/19 0309 Dictated By: Ziyad Rooney MD Dictated Date/Time: 12/15/19 025 ASSESSMENT:54 yo male with signs symptoms and CT findings C/W Acute Appendicitis PLAN:NPO, IV ABX, OR today for Laparoscopic Appendectomy. Above D/W Dr Rossi
[2019-12-15] MEDS ORDERED: Bupivacaine 0.25% SDV* 30 ML ONE (08:25)
[2019-12-15] MEDS ORDERED: Buffered Lidocaine 1% SYRIN* 1 ML/SYRINGE INTRADERM ONE (08:34)
[2019-12-15] MEDS ORDERED: HYDROmorphone INJ1* 1 MG/ML SYRINGE IV PRN (08:35)
[2019-12-15] MEDS ORDERED: Naloxone* 0.4 MG/ML 1 ML VIAL IV PRN (08:35)
[2019-12-15] MEDS ORDERED: Clindamycin 600 MG/D5W BAG(*) 600 MG/50 ML BAG IV ONE (08:46)
--- NOTE | 2019-12-15 08:56 | PN ---
Progress Note - Progress Note Date of Service: 12/15/19 Note: Surgery Progress Note Please see full H&P by IBRAHIMA Harley. Briefly, patient is a 54 yo M with morbid obesity, COPD who presented to the ED last night with RLQ and RUQ pain x 2 days. He was found to have a mildly elevated WBC and a CT scan consistent with acute appendicitis. I have reviewed his labs and imaging. On physical exam he is tender in the RLQ. I have reviewed surgery with him, which will be a laparoscopic, possible open appendectomy. I discussed that the risks include but are not limited to bleeding, infection, injury to nearby structures such as the cecum, small bowel, bladder, stomach and so forth. There is a chance that he may present later with an intraabdominal abscess. He understands that there is a chance that the appendix is perforated and gangrenous, possibly requiring an admission for IV antibiotics. He understands the alternatives and benefits and wishes to proceed with surgery. All questions were answered.
[2019-12-15] MEDS ORDERED: Haloperidol INJ IV/IM* 5 MG/ML AMP ONE (11:08)
--- NOTE | 2019-12-15 11:12 | BRIEFOPN ---
Brief Operative/Procedure Note - Operation Details Pre-Op Diagnosis: acute appendicitis Post-Op Diagnosis: perforated appendicitis Procedures: laparoscopic appendectomy Surgeon(s)/Proceduralists: Jemima Rossi Anesthesia: Dr. Kandis LINARES Estimated Blood Loss: minimal Findings: perforated appendix, inflamed near base Specimen(s)/Culture(s) Description: appendix Complications: none
[2019-12-15] MEDS ORDERED: HYDROmorphone INJ1* 1 MG/ML SYRINGE ONE (11:23)
[2019-12-15] MEDS: Clindamycin 600 MG/D5W BAG(*) 600 MG/50 ML BAG IV SCH ×2 (12:19→16:42)
--- NOTE | 2019-12-15 12:40 | OP ---
DATE OF OPERATION: 12/15/19 - ROOM #349 DATE OF : [birth year] SERVICE: General Surgery. SURGEON: Jemima Rossi MD SITE DAMAGE PREVENTION TECHNICIAN: None. ANESTHESIOLOGIST: Dr. Marquis. ANESTHESIA: General endotracheal anesthesia. PRE-OP DIAGNOSIS: Acute appendicitis. POST-OP DIAGNOSIS: Perforated appendicitis. OPERATIVE PROCEDURE: Laparoscopic appendectomy. ESTIMATED BLOOD LOSS: Minimal, less than 10 cc. SPECIMENS: Appendix. COMPLICATIONS: None. INDICATIONS FOR SURGERY: Mr. Villanueva is a very pleasant 54-year-old gentleman with a history of COPD and morbid obesity. He presented to the emergency room with 2 to 3 days of right upper quadrant and right lower quadrant abdominal pain and severe nausea. His white count was noted to be elevated and he had a CT scan consistent with acute appendicitis. He therefore gave informed consent for a laparoscopic appendectomy. He understood that the risks include, but were not limited to bleeding, infection, injury to nearby structures. He understood the alternatives and benefits and he wished to proceed. DESCRIPTION OF PROCEDURE: The patient was brought back to the operating room and placed on the operating table in the supine position. Sequential compression devices were placed on bilateral lower extremities for DVT prophylaxis. Antibiotics with clindamycin was administered. General endotracheal anesthesia was induced and a Broussard catheter was placed. The patient's abdomen was then prepped and draped in a normal sterile fashion after tucking the left arm. A time- out was performed verifying the patient's name, date of , and the procedure to be performed. Next, 0.25% Marcaine was infiltrated into the left upper quadrant at Gutiérrez's point. A small incision was made and then the Veress needle was advanced into the abdominal wall. A saline drop test was performed that confirmed that the Veress needle was intraabdominal, and after this was done, insufflation was then obtained to 15 mmHg. Next, 0.25% Marcaine was then infiltrated into the infraumbilical fold. A skin incision was made, and then under direct visualization using a 5 mm Optiview trocar, the abdomen was then entered. After this, the abdominal cavity was examined. There was no injury that had been made upon entry with the Veress needle or the 5mm trocar. Therefore, the Veress needle was removed. Next under direct visualization, the remaining two 5 mm trocars were placed, one in the left lower quadrant and one in the lower mid abdomen well above the bladder. The 5 mm trocar at the infraumbilical site was exchanged for a 12 mm trocar. Next, the patient was placed in Trendelenburg with the right side up. The small bowel and the right lower quadrant were swept cephalad, which exposed a very inflamed mesoappendix and a dilated, inflamed phlegmon that contained the tip of an appendix. With great care, the appendix was from very severely inflamed rind of surrounding fatty tissue. There was a lot of difficulty with freeing up the appendix from the inflammatory rind. While doing this, a perforation in the appendix was exposed near the base of the appendix. The base of the appendix also had a sort of blackened rind to it that was very concerning. This was consistent with the finding on the CT scan that showed a large dilated appendix, with surrounding fluid and inflammation of the cecum. Eventually, the base was exposed after dividing the mesoappendix. However, the perforation was very close to the base of the appendix. A 60 mm wilhelm stapler was used to staple across the base of the appendix, but there was a slight tear in the appendix while doing this. The appendix was then placed into an EndoCatch bag and then removed from the abdomen as a specimen. Attention was turned back towards the staple line. Using a Lashanda clamp, the staple line was elevated slightly. There was a small amount of base of the appendix that was left remaining. Therefore an additional 60 mm EndoGIA was used to staple further proximal on the base of the appendix for a second time. After this, the small amount of appendix was then removed from the abdomen and examination of the new staple line showed that it was hemostatic and intact. Several clips were used to reinforce this. After this, the right upper quadrant was aspirated and irrigated with normal saline because there was a small amount of purulent fluid present. The pelvis was examined. A small amount of purulent fluid was also aspirated. After this, a 10-PEARL drain was placed into the right lower quadrant through the left lower quadrant incision. Hemostasis was obtained and then desufflation was obtained and all the trocars were removed under direct visualization. Next, the fascia of the infraumbilical port site was closed using an interrupted 0 Vicryl suture. All the skin was closed using interrupted 4- 0 Monocryl sutures. Sterile dressing was then placed. The patient's anesthesia was reversed, and he was taken to the PACU in stable condition. At the end of the case, prior to the patient waking up, his Broussard catheter was removed. At the end of the case, all counts were correct, and I was present during the entirety of the case. [id number]/[facility] #: [id number] MTDD
[2019-12-15] MEDS: Lactated Ringers 1000 ML Bag* 1,000 ML IVPB SCH ×4 (12:57→22:34)
[2019-12-15] MEDS ORDERED: Acetaminophen TAB* 325 MG PO PRN (13:06)
[2019-12-15] MEDS: oxyCODONE/Acetamin 5/325 MG* TAB PO PRN ×2 (16:07→20:49)
[2019-12-15] MEDS: Ondansetron INJ* 2 MG/ML VIAL IV PRN ×2 (16:36→22:34)
[2019-12-15] MEDS ORDERED: PROCHLORPERAZINE INJ 5 MG/ML 2 ML VIAL IV PRN (18:46)
[2019-12-15] MEDS: Zolpidem TAB* 5 MG PO PRN (22:34)
[2019-12-16] MEDS: Clindamycin 600 MG/D5W BAG(*) 600 MG/50 ML BAG IV SCH ×3 (01:01→16:53)
[2019-12-16] MEDS ORDERED: NS 0.9% 100 ML* 100 ML ONE (05:29)
[2019-12-16] MEDS: Ondansetron INJ* 2 MG/ML VIAL IV PRN ×4 (05:34→22:43)
[2019-12-16] MEDS: oxyCODONE/Acetamin 5/325 MG* TAB PO PRN ×4 (05:37→19:27)
[2019-12-16 05:38] LABS: ABS Lymphocytes 1.1 10^3/ul (1.0-4.8); ABS Monocytes 1.2 10^3/ul (0-0.8); ABS Neutrophils 13.8 10^3/ul (1.5-7.7); Hematocrit 42 % (42-52); Hemoglobin 14.3 g/dL (14.0-18.0); Lymphocyte % 7.1 %; Mean Corpuscular HGB Conc 34 g/dL (31-36); Mean Corpuscular Hemoglobin 31 pg (27-31); Mean Corpuscular Volume 90 fL (80-94); Mean Platelet Volume 9.3 fL (7.4-10.4); Platelet Count 248 10^3/uL (150-450); Red Blood Count 4.68 10^6 /uL (4.18-5.48); Red Cell Distribution Width 14 % (10-15); White Blood Count 16.2 10^3/uL (3.5-10.8)
[2019-12-16 05:55] LABS: BUN/Creatinine Ratio 16.7 (8-20); Calcium 8.8 mg/dL (8.6-10.3); EGFR African American 168.6 (>60); EGFR Non-African American 139.4 (>60); Potassium 3.8 mmol/L (3.5-5.0)
[2019-12-16] MEDS ORDERED: NS 0.9% IVPB ONE (06:30)
[2019-12-16] MEDS ORDERED: GENTAMICIN ADULT IVPB ONE (06:30)
--- NOTE | 2019-12-16 08:10 | PN ---
Progress Note - Progress Note Date of Service: 12/16/19 Note: Surgery Progress Note S: Patient feels well this morning. Yesterday he had nausea and was able to drink liquids. He has been ambulating to the restroom. His pain is overall improved since before surgery. O: Vital Signs - 24 hr 12/15/19 12/15/19 12/15/19 08:08 11:05 11:10 Temperature 97.3 F Pulse Rate 88 75 Respiratory 18 18 18 Rate Blood Pressure 144/89 135/80 (mmHg) O2 Sat by Pulse 96 95 Oximetry 12/15/19 12/15/19 12/15/19 11:15 11:20 11:23 Temperature Pulse Rate 73 74 Respiratory 16 16 16 Rate Blood Pressure 125/78 121/56 (mmHg) O2 Sat by Pulse 94 90 Oximetry 12/15/19 12/15/19 12/15/19 11:45 12:04 12:30 Temperature 97.9 F 97.1 F Pulse Rate 68 74 78 Respiratory 16 16 14 Rate Blood Pressure 135/80 137/77 124/86 (mmHg) O2 Sat by Pulse 93 94 95 Oximetry 12/15/19 12/15/19 12/15/19 13:16 13:28 14:43 Temperature 97.5 F 97.4 F Pulse Rate 75 67 Respiratory 16 16 20 Rate Blood Pressure 140/71 134/75 (mmHg) O2 Sat by Pulse 98 98 Oximetry 12/15/19 12/15/19 12/15/19 16:07 16:43 18:38 Temperature 97.6 F 97.9 F Pulse Rate 65 68 Respiratory 16 20 20 Rate Blood Pressure 139/81 140/85 (mmHg) O2 Sat by Pulse 97 98 Oximetry 12/15/19 12/15/19 12/15/19 20:49 21:11 22:34 Temperature 97.8 F Pulse Rate 64 Respiratory 18 18 18 Rate Blood Pressure 134/68 (mmHg) O2 Sat by Pulse 98 Oximetry 12/15/19 12/16/19 12/16/19 23:24 00:59 04:18 Temperature 97.7 F 97.6 F Pulse Rate 61 68 Respiratory 18 16 17 Rate Blood Pressure 119/73 136/72 (mmHg) O2 Sat by Pulse 97 97 Oximetry 12/16/19 12/16/19 05:37 07:00 Temperature 98.1 F Pulse Rate 52 Respiratory 16 20 Rate Blood Pressure 134/72 (mmHg) O2 Sat by Pulse 95 Oximetry Laboratory Results - last 24 hr 12/15/19 12/16/19 12/16/19 11:19 05:31 05:31 WBC 16.2 H RBC 4.68 Hgb 14.3 Hct 42 MCV 90 MCH 31 MCHC 34 RDW 14 Plt Count 248 MPV 9.3 Neut % (Auto) 85.2 Lymph % (Auto) 7.1 [place] % (Auto) 7.6 Eos % (Auto) 0.0 Baso % (Auto) 0.1 Absolute Neuts (auto) 13.8 H Absolute Lymphs (auto) 1.1 Absolute Monos (auto) 1.2 H Absolute Eos (auto) 0.0 Absolute Basos (auto) 0.0 Absolute Nucleated RBC 0.0 Nucleated RBC % 0.0 Sodium 136 Potassium 3.8 Chloride 103 Carbon Dioxide 25 Anion Gap 8 BUN 10 Creatinine 0.60 L Est GFR ( Amer) 168.6 Est GFR (Non-Af Amer) 139.4 BUN/Creatinine Ratio 16.7 Glucose 138 H POC Glucose (mg/dL) 144 H Calcium 8.8 Intake & Output 12/15/19 12/16/19 12/16/19 22:59 06:59 14:59 Intake Total 1498 Output Total 500 410 Balance 998 -410 Intake: IVPB 58 ABX - CLINDAMYCIN 58 Oral 1440 Output: PEARL #1 50 10 Urine 450 400 Other: # Bowel Movements 0 Physical exam: Abdomen- soft, minimally tender in RLQ, dressings c/d/i and PEARL with serosanguinous fluid A/P: 54 M with perforated (intraop) appendicitis, doing well. - Soft, keto diet (he can bring his own food to eat) - IV abx. WBC slightly elevated today, per expected after surgery. Patient remains afebrile. - OOB ambulate - Plan for DC this afternoon or tomorrow, depending on how well patient eats/ pain is controlled today. I advised patient on return precautions. He will need drain teaching and PO abx (clindamycin) for home. He will return to the office next week for PEARL drain removal. He can remove the outer dressings tomorrow.
[2019-12-16] MEDS: Lactated Ringers 1000 ML Bag* 1,000 ML IVPB SCH ×4 (08:23→16:53)
[2019-12-16] MEDS: Zolpidem TAB* 5 MG PO PRN (22:43)
[2019-12-17] MEDS: Clindamycin 600 MG/D5W BAG(*) 600 MG/50 ML BAG IV SCH ×2 (01:33→09:23)
[2019-12-17] MEDS: Lactated Ringers 1000 ML Bag* 1,000 ML IVPB SCH ×2 (03:45)
--- NOTE | 2019-12-17 08:08 | PN ---
Progress Note - Progress Note Date of Service: 12/17/19 Note: Surgery Progress Note S: Patient is feeling better. His pain has improved, he has been ambulating many times. Has had flatus. Was somewhat nauseous yesterday but able to take PO. Remains afebrile. O: Vital Signs - 24 hr 12/16/19 12/16/19 12/16/19 08:24 08:25 09:40 Temperature Pulse Rate Respiratory 20 20 16 Rate Blood Pressure (mmHg) O2 Sat by Pulse Oximetry 12/16/19 12/16/19 12/16/19 11:09 11:35 12:14 Temperature 98.3 F 98.5 F Pulse Rate 64 Respiratory 16 14 Rate Blood Pressure 145/81 (mmHg) O2 Sat by Pulse 99 Oximetry 12/16/19 12/16/19 12/16/19 14:43 15:56 17:16 Temperature 98.1 F Pulse Rate 65 Respiratory 14 18 18 Rate Blood Pressure 139/87 (mmHg) O2 Sat by Pulse 99 Oximetry 12/16/19 12/16/19 12/16/19 19:17 19:27 21:50 Temperature 98.1 F Pulse Rate 77 Respiratory 20 16 16 Rate Blood Pressure 135/85 (mmHg) O2 Sat by Pulse 96 Oximetry 12/16/19 12/16/19 12/17/19 22:08 23:34 03:17 Temperature 97.9 F 97.7 F Pulse Rate 69 67 Respiratory 16 16 16 Rate Blood Pressure 128/84 125/84 (mmHg) O2 Sat by Pulse 98 97 Oximetry 12/17/19 07:58 Temperature 97.6 F Pulse Rate 77 Respiratory 18 Rate Blood Pressure 138/82 (mmHg) O2 Sat by Pulse 95 Oximetry Intake & Output 12/16/19 12/17/19 12/17/19 22:59 06:59 14:59 Intake Total 980 1550 Output Total 1390 785 Balance -410 765 Intake: IV Fluids 1000 LR 1000 IVPB 100 ABX - CLINDAMYCIN 100 Oral 980 450 Output: PEARL #1 40 30 Urine 1350 755 Other: # Bowel Movements 0 Physical exam: Abdomen- soft, NTND, incisions c/d/i with steristrips in place. PEARL x 1 with serosanguinous fluid A/P: 54 M POD 2 from perforated appendicitis, doing well. - Plan for DC home today with abx and pain meds - PEARL drain teaching - Will follow up next week in the office for PEARL removal
[2019-12-17] MEDS: Ondansetron INJ* 2 MG/ML VIAL IV PRN (10:49)
[2019-12-17 12:17] VITALS: BP 148/87
--- NOTE | 2019-12-17 14:46 | DS ---
Discharge Summary Surgeon: Flo MORE Admit Date:12/15/2019 Discharge Date:12/17/2019 Admission DX:Appendicitis Discharge DX:Appendicitis with Perforation Condition at Discharge:Stable Date of D/C PEX: Chest:CTA CVS:RRR ABD:obese, soft, incisional tenderness, Steris in place, PEARL with SS Output Procedures Performed:Laparoscopic Appendectomy Hospital Course: 54 yo male admitted with RLQ pain, CT Findings of Acute Appendicitis, taken to the OR on 12/14 for laparoscopic appendectomy, tolerated well and was taken to [facility] for post op care. Post operatively the patient had appropriate tenderness and had nausea. Nausea was treated with IV Medicine, he was ambulating, but not passing gas. POD 1 continued with this presentation. On On POD 2, the patient was feeling better in the AM, but C/O no flatus in the AM. After lunch POD 2, patient had passed gas, was feeling much better, nausea had resolved and he wanted to go home. Discharge instructions were given to the patient regarding Diet, Medications, Clinda 600 TID x 1 week, percocet as needed for moderate pain, tylenol for mild pain, Instructed how to maintain his PEARL Drain. Activity, no lifting > 10 lbs for 3 weeks, and post operative Follow up was arranged. All Questions were answered. Discharged Home in Stable Condition on 12/17/2019
== END 2019-12-17 14:33 | disposition home or self-care (01) | DRG 225 ==
LOC: ED 23:17 → SDS 12-15 06:36 → SSU 12-15 06:37 → UNDOADMIN 12-15 06:37 → INTOOBSV 12-15 06:37 → UNDODISIN 12-17 14:33
PROVIDERS: ADMIT Surgery; ATTEND Surgery
DX: K35.32 Acute appendicitis with perforation, localized peritonitis, and gangrene, without abscess (principal); Z68.41 Body mass index [BMI] 40.0-44.9, adult; J44.9 Chronic obstructive pulmonary disease, unspecified; E66.01 Morbid (severe) obesity due to excess calories; Z87.891 Personal history of nicotine dependence; Z82.49 Family history of ischemic heart disease and other diseases of the circulatory system; Z80.8 Family history of malignant neoplasm of other organs or systems; Z88.0 Allergy status to penicillin
CPT/HCPCS: 36415; 74177; 80048; 80053; 81003; 83605; 83690; 85025; 86140; 88304; 93005; 99284; A9270-GY; J0780; J1170; J1580; J1630; J1885; J2405; J3490; Q9967